=== PATIENT | male | born 1990 | race Caucasian/White ===

== ENCOUNTER → 2018-06-05 20:38 | Outpatient (CLI) | payer OTHER, SELFPAY ==
[2018-06-05 21:02] LABS: Basophils # 0.1 K/mm3 (0-0.2); Basophils % 1.1 % (0.1-2.0); Eosinophils # 0.3 K/mm3 (0.0-0.4); Hematocrit 47.3 % (42.0-52.0); Hemoglobin 15.9 g/dL (14.1-18.0); Lymphocytes # 1.6 K/mm3 (0.7-4.5); Lymphocytes % 24.1 % (10-50); Mean Corpuscular HGB Conc 33.5 g/dL (31.8-35.4); Mean Corpuscular Hemoglobin 29.4 pg (27.0-31.2); Mean Corpuscular Volume 87.8 fl (80-94); Mean Platelet Volume 7.4 fl (7.4-10.4); Monocytes # 0.5 K/mm3 (0.1-1.0); Neutrophils # 4.3 K/mm3 (1.8-7.8); Neutrophils % 63.8 % (37.0-80.0); Platelet Count 261 K/mm3 (142-424); Red Blood Count 5.39 M/mm3 (4.60-6.20); Red Cell Distribution Width 13.1 % (11.5-17.5); White Blood Count 6.7 K/mm3 (4.8-10.8)
[2018-06-05 21:26] LABS: Alanine Aminotransferase 58 U/L (12-78); Albumin Level 3.7 gm/dL (3.4-5.0); Alkaline Phosphatase 78 U/L (46-116); Aspartate Amino Transferase 23 U/L (15-37); Bilirubin,Total 0.3 mg/dL (0.2-1.0); Blood Urea Nitrogen 17 mg/dL (7-18); C-Reactive Protein 0.6 mg/L (0.0-0.9); Calcium 8.9 mg/dL (8.5-10.1); Carbon Dioxide 29 mmol/L (21.0-32.0); Chloride 103 mmol/L (98-107); Chol/HDL Ratio 4.1 (1-3.5); Cholesterol 203 mg/dL (140-200); Estimated Glomerular Filt Rate 72 ml/min (>60); GFR (African American) 87 ML/MIN (>60); Globulin 3.7 gm/dl (1.3-3.2); Glucose 90 mg/dL (74-106); HDL Cholesterol 49 mg/dL (27-67); LDL Cholesterol 131 mg/dL (0-130); Sodium 140 mmol/L (136-145); T4 (Thyroxine) 5.7 ug/dl (4.7-13.3); Thyroid Stimulating Hormone 2.94 uIU/ml (0.358-3.740); Total Protein,Serum 7.4 gm/dL (6.4-8.2); Triglycerides 116 mg/dL (30-200); VLDL Cholesterol 23 mg/dL (0-40)
[2018-06-05 21:43] LABS: Erythrocyte Sedimentation Rate 0 mm/hr (0-15)
== END ==
PROVIDERS: PCP Emergency Medicine; Visit Provider Emergency Medicine
DX: R21 Rash and other nonspecific skin eruption (principal)
CPT/HCPCS: 80053; 80061; 84436; 84443; 85025; 85651; 86140

== ENCOUNTER 2020-10-23 23:30 | Emergency (ER) | payer OTHER, SELFPAY ==
[2020-10-23 23:42] VITALS: BP 159/92; PULSE 96; RESP 22; TEMP 36.9; O2SAT 99; BMI 35.9
--- NOTE | 2020-10-23 23:54 | ECG_ITS ---
APPROVED REPORT Exam: Resting ECG HR:94 bpm ECG Measurements Heart Rate 94 AXES QRSd 98 QRS 5 QT 348 T 20 QTc 435 Conclusion Atrial fibrillation Abnormal ECG Electronically signed by : Flako Vallejo, 10/24/2020 19:01:35
[2020-10-24 00:02] LABS: Basophils % 0.8 % (0.1-2.0); Eosinophils # 0.2 K/mm3 (0.0-0.4); Eosinophils % 3.1 % (0.1-12.0); Hematocrit 45.6 % (42.0-52.0); Hemoglobin 15.4 g/dL (14.1-18.0); Lymphocytes # 1.6 K/mm3 (0.7-4.5); Lymphocytes % 26.8 % (10-50); Mean Corpuscular HGB Conc 33.8 g/dL (31.8-35.4); Mean Corpuscular Hemoglobin 28.8 pg (27.0-31.2); Mean Corpuscular Volume 85.2 fl (80-94); Monocytes # 0.6 K/mm3 (0.1-1.0); Neutrophils # 3.5 K/mm3 (1.8-7.8); Neutrophils % 59.4 % (37.0-80.0); Platelet Count 290 K/mm3 (142-424); Red Blood Count 5.36 M/mm3 (4.60-6.20); Red Cell Distribution Width 13.3 % (11.5-17.5); White Blood Count 5.9 K/mm3 (4.8-10.8)
[2020-10-24 00:07] LABS: Alanine Aminotransferase 52 U/L (12-78); Albumin Level 4.5 g/dl (3.5-5.0); Alkaline Phosphatase 83 U/L (38-126); Anion Gap 9.8 mEq/L (5-15); Aspartate Amino Transferase 53 U/L (17-59); Bilirubin,Indirect 0.4 mg/dL (0.0-0.9); Bilirubin,Total 0.4 mg/dl (0.2-1.3); Bilirubin,Unconjugated 0.3 mg/dL (0.0-1.1); Blood Urea Nitrogen 18 mg/dl (9-20); Calcium 9.1 mg/dl (8.4-10.2); Carbon Dioxide 27 mmol/L (22.0-30.0); Chloride 104 mmol/L (98-107); Creatinine Clearance Estimated 155 mL/min (50-200); Estimated Glomerular Filt Rate 78 ml/min (>60); GFR (African American) 94 ML/MIN (>60); Glucose 104 mg/dl (74-100); Potassium 3.8 mmoL/L (3.5-5.1); Sodium 137 mmol/L (136-145); Total Protein,Serum 7.4 g/dl (6.3-8.2)
[2020-10-24 00:12] LABS: C-Reactive Protein 15.4 mg/L (0-4)
[2020-10-24 00:23] LABS: Troponin I < 0.01 ng/ml (0.00-0.034)
[2020-10-24 00:26] LABS: Procalcitonin 0.064 ng/mL (0.0-2.0)
[2020-10-24 00:28] LABS: Erythrocyte Sedimentation Rate 10 mm/hr (0-15)
[2020-10-24 01:31] VITALS: BP 136/87; PULSE 86; O2SAT 95
--- NOTE | 2020-10-24 01:36 | HMH.EDARPALP ---
ED Disposition Clinical Impression: Palpitations Disposition: Home, Self-Care Condition on Discharge: Good Instructions: DI for Palpitations Additional Instructions: see pcp for follow up Referrals: Dharmesh Vergara MD [Primary Care Provider] - - Critical Care Critical Care Time: No Attestation: On 10/23/20, the high probability of a clinically significant, sudden or life threatening deterioration of the following system(s) required my full and direct attention, intervention and personal management. The time I documented below is in addition to time spent performing reported procedures but includes the following listed in this critical care notation. Medical Decision Making - Medical Records Medical records reviewed: Yes: I reviewed the patient's medical records. - Pawel Inquiry Pt receiving controlled substance: No Vital Signs: 10/23/20 23:42 10/24/20 01:31 Temperature 98.4 F Temperature Source Oral Pulse Rate 86 Pulse Rate [Right] 96 H Respiratory Rate 22 Blood Pressure 136/87 Blood Pressure [Right Arm] 159/92 H Blood Pressure Mean 104 Blood Pressure Mean [Right Arm] 114 Blood Pressure Source [Right Arm] Automatic Cuff Blood Pressure Position [Right Arm] Supine 02 Sat by Pulse Oximetry 99 95 Oxygen Delivery Method Room Air - Lab Data Lab results reviewed: Yes: I reviewed the patient's lab results. Lab Results 10/23/20 23:45: WBC 5.9, RBC 5.36, Hgb 15.4, Hct 45.6, MCV 85.2, MCH 28.8, MCHC 33.8, RDW 13.3, Plt Count 290, MPV 8.0, Neut % (Auto) 59.4, Lymph % (Auto) 26.8, Robeson % (Auto) 10.0 H, Eos % (Auto) 3.1, Baso % (Auto) 0.8, Neut # (Auto) 3.5, Lymph # (Auto) 1.6, Robeson # (Auto) 0.6, Eos # (Auto) 0.2, Baso # (Auto) 0.0, ESR 10 10/23/20 23:45: Sodium 137, Potassium 3.8, Chloride 104, Carbon Dioxide 27, Anion Gap 9.8, BUN 18, Creatinine 1.10, Estimated Creat Clear 155, Estimated GFR 78, Est GFR ( Amer) 94, Glucose 104 H, Calcium 9.1, Total Bilirubin 0.4, Direct Bilirubin 0.0, Conjugated Bilirubin 0.0, Indirect Bilirubin 0.4, Unconjugated Bilirubin 0.3, AST 53, ALT 52, Alkaline Phosphatase 83, Troponin I < 0.01, C-Reactive Protein 15.4 H, Total Protein 7.4, Albumin 4.5, Procalcitonin 0.064 10/24/20 00:00: Thyroxine (T4) 6.6 10/24/20 00:00: Hemoglobin A1c 5.5 Result diagrams: 10/23/20 23:45 10/23/20 23:45 Orders (Tests/Meds): ED MEDICATIONS Generic Name Dose Route Start Last Admin Trade Name Freq PRN Reason Stop Dose Admin Sodium Chloride 1,000 mls @ 999 mls/hr 10/23/20 23:45 10/24/20 00:44 Sod Chlor 0.9% 1000ml Bag IV 10/24/20 00:45 999 mls/hr .Q1H1M RUBEN Administration ORDERS Category Date Time Status XR chest 2V Stat Exams 10/24/20 23:54 Taken T4 (Thyroxine) Stat Lab 10/24/20 00:00 Results TSH [Thyroid Stimulating Hormone] Stat Lab 10/24/20 00:00 Results Troponin I Q3H Lab 10/24/20 00:00 Results Troponin I Q3H Lab 10/24/20 06:00 Ordered - Radiology Data #1 Image(s): Chest Image Reviewed: Yes I reviewed the patient's radiology image Preliminary Findings: Normal/NAD - ECG Data Tracing #1 Normal Sinus Rhythm: Yes Ischemic changes: non-specific ST-T wave changes - NELLY Score for Non-Stemi Age of Patient: 30-39 years old Heart Rate: 90-109 bpm Systolic Blood Pressure: 140-159 mmHg Serum Creatinine: 0.80-1.19 mg/dl CHF Killip Class: I-No CHF Other Risk Factors: None Non-Stemi Risk Score: 54 Medical Decision Narrative: will need diet and echo as follow up - no elevated card enz Arrhythmia/Palpitations HPI - General Chief Complaint: Arrhythmia/Palpitations Stated Complaint: clammy hands,heart racing Time Seen by Provider: 10/24/20 00:00 Mode of Arrival: Ambulatory Source of Information: Patient, Spouse, Medical Record Limitations: No Limitations - History of Present Illness HPI narrative: acute onset of fast hr with no chest pain but felt funny but no loc MD complaint: heart racing Onset (ago): hour(s)
[2020-10-24 02:02] LABS: Hemoglobin A1C 5.5 % (4.0-6.0)
[2020-10-24 02:13] LABS: T4 (Thyroxine) 6.6 ug/dl (5.53-11.0)
[2020-10-24 02:30] LABS: Thyroid Stimulating Hormone 2.16 uIU/mL (0.465-4.68)
[2020-10-24 02:50] VITALS: BP 128/61; PULSE 84; RESP 16; TEMP 36.9; O2SAT 99
[2020-10-24 02:58] LABS: Troponin I < 0.01 ng/ml (0.00-0.034)
--- NOTE | 2020-10-24 23:54 | XR_ITS ---
PROCEDURE: XR CHEST 2V CLINICAL HISTORY: palpatations COMPARISON: No exams were available for comparison FINDINGS: The cardiomediastinal silhouette and pulmonary vascularity are within normal limits. The lungs are clear without infiltrates, suspicious nodules, or pleural effusions. No acute bony abnormalities. IMPRESSION: No acute findings. Dictated by: Lennox Hilton MD 10/24/2020 05:32 Lennox Hilton MD in [place] 10/24/2020 05:32
== END 2020-10-24 03:00 | disposition home or self-care (01) ==
PROVIDERS: Emergency Provider Emergency Medicine; PCP Emergency Medicine
DX: R00.2 Palpitations (principal); R42 Dizziness and giddiness; Z88.0 Allergy status to penicillin
CPT/HCPCS: 71046; 80048; 80076; 83036; 84145; 84436; 84443; 84484; 85025; 85651; 86140; 93005; 96365; 99282

== ENCOUNTER → 2020-11-23 07:47 | Outpatient (CLI) | payer OTHER, SELFPAY ==
--- NOTE | 2020-11-23 07:48 | CA_ITS ---
APPROVED REPORT EXAM: Comprehensive 2D, Doppler, and color-flow Echocardiogram [employer] C[employer] Developer: Samira Davenport CRT Ht: 5 ft 11 in Wt: 225lbs BSA: 2.22 BP: 136/87 mmHg Indications: Palpitations 2D Dimensions LVOT 2.06 cm (M/F) 1.5-2.5 LA Volume 60.70 mL LA Volume Index 27.30 mL/m2 (M/F) 16-34 M-Mode Dimensions RVDd 2.55 cm (0.9-2.6) LA Diam 3.51 cm (1.9-4.0) LVDd 5.43 cm (3.5-5.7) Ao Diam 3.58 cm (2.0-3.7) LVDs 3.01 cm (3.5-5.7) IVSd 1.17 cm (0.6-1.1) PWd 0.94 cm (0.6-1.1) EF (Teich) 75.30% FS 44.60% EDV (Teich) 143.10 mL ESV (Teich) 35.30 mL LV Diastology E Decel Time 150.00 (160-240 msec) E/A Ratio 1.77 LAT E' 17.10 (<10 cm/sec) LAT A' 11.50 cm/s E/LAT E' Ratio 5.68 (>14) Aortic Valve AO Peak GR. 6.80 mmHg Mitral Valve MV E Max Jamari. 97.00 (40-130 cm/s) MV A Velocity 55.00 (40-130 cm/s) E/A Ratio 1.77 MV Decel. Time 150.00 (160-240 ms) MV PHT 44.00 ms Pulmonary Valve PV Peak Velocity 80.00 (50-150 cm/s) Tricuspid Valve TR P. Velocity 236.00 cm/s RAP Estimate 10.00 mmHg RVSP 32.20 mmHg Left Ventricle Left atrium is normal size, left ventricle is normal size, there is no concentric left ventricular hypertrophy, visually estimated ejection fraction 55% with no regional wall motion abnormality, diastolic parameters are within normal range. Right Ventricle Right atrium and right ventricular normal size and contractility. Aortic Valve Aortic valve is minimally thickened aortic valve is grossly normal, there is no aortic stenosis or aortic insufficiency. Mitral Valve Mitral valve grossly normal, there is trace mitral regurgitation. Tricuspid Valve Tricuspid valve is grossly normal, there is trace tricuspid regurgitation. Tricuspid regurgitation jet versus inadequate for calculation of the right ventricular systolic pressure. Pulmonic Valve Pulmonic valve is poorly visualized. Great Vessels Aortic root is normal size. Pericardium No significant pericardial effusion noted. Conclusion 1. Normal left ventricular size, preserved left ventricular systolic function, visually estimated ejection fraction 45% with no regional wall motion abnormality, diastolic parameters are within normal range. 2. Trace mitral and tricuspid regurgitation. 3. No significant pericardial effusion noted. Electronically signed by : Jaycob Rivera, 11/24/2020 11:18:32
== END ==
PROVIDERS: PCP Emergency Medicine; Visit Provider Emergency Medicine
DX: R00.2 Palpitations (principal); R94.31 Abnormal electrocardiogram [ECG] [EKG]
CPT/HCPCS: 93306

== ENCOUNTER → 2021-12-21 08:56 | Outpatient (CLI) | payer OTHER, SELFPAY ==
--- NOTE | 2021-12-21 | CT_ITS ---
FINAL REPORT CLINICAL HISTORY: CHEST PAIN, FAMILY HX HEART DISEASE FINDINGS: CT CORONARY CALCIUM SCORE W/O TECHNIQUE: Thin-section axial images were obtained through the heart and coronary arteries per CT coronary calcium score protocol. This study was performed with techniques to keep radiation doses as low as reasonably achievable (ALARA). Individualized dose reduction techniques using automated exposure control or adjustment of mA and/or kV according to the patient's size were employed. FINDINGS: On the axial images, there is no calcification identified. This gives a coronary artery calcium score of 0 based on the Agatston scale. This coronary artery calcium score places the patient within the 0 percentile based on age and gender. The heart size is normal. There is no pleural or pericardial effusion. Limited evaluation of the lungs reveal no suspicious nodule. IMPRESSION: Coronary artery calcium score of 0 based on the Agatston scale . Reviewed, Interpreted and Dictated by Dat Chin III, MD Transcribed by Kandy Collier Authenticated and [facility]
== END ==
PROVIDERS: PCP Emergency Medicine; Visit Provider Internal Medicine Cardiovascular Disease
DX: Z82.49 Family history of ischemic heart disease and other diseases of the circulatory system (principal)
CPT/HCPCS: 75571

== ENCOUNTER 2022-04-04 22:47 | Emergency (ER) | payer OTHER, SELFPAY ==
[2022-04-04 22:48] VITALS: BP 139/78; PULSE 66; RESP 18; TEMP 36.8; O2SAT 98; BMI 32.3
--- NOTE | 2022-04-04 23:51 | HMH.EDBACK ---
Discharge Plan Disposition Patient Disposition: Home, Self-Care Chief Complaint: Back Pain/Injury Prescriptions Prescriptions: No Action azithromycin [Zithromax Z-Humza] 250 mg tablet See Rx Instructions PO .COMPLEX Qty: 6 0RF Rx Instructions: For 250 mg dose pack: take 500 mg today (day 1), then 250 mg for 4 days (days 2-5) PO clonazepam [Klonopin] 0.5 mg tablet 0.5 mg PO BID Qty: 60 0RF cefdinir 300 mg capsule 300 mg PO BID Qty: 14 0RF sertraline [Zoloft] 25 mg tablet 25 mg PO DAILY Qty: 90 3RF Referrals Follow up/Referrals: Dharmesh Vergara MD [Primary Care Provider] - See instructions Clinical Impressions Clinical Impression: Acute left flank pain, Hematuria Instructions Patient Instructions: DI for Hematuria Discharge ED Provider: Dharmesh Vergara Back Pain HPI General Chief Complaint: Back Pain/Injury Stated Complaint: urinating blood and back pain Time Seen by Provider: 04/04/22 23:51 Mode of Arrival: Ambulatory Source of Information: Patient and Medical Record Limitations: No Limitations Description of Symptoms (Recalled from ER Triage Doc. by RN): pt states that he had a sharp pain in the left flank and started urinating blood in his urine. pt states now the pain is 2/10. pt reports no hx of stones or kidney problems. pt also denies nausea History of Present Illness HPI Narrative: acute onset of lt flank pain Complaint: back pain Onset (ago): hour(s) Duration: intermittent Similar Symptoms Previously: No Location: left flank Severity: moderate Associated symptoms: denies other symptoms Related Data Previous Rx's Medication Instructions Recorded azithromycin 250 mg tablet See Rx Instructions PO .COMPLEX #6 07/31/21 (Zithromax Z-Humza) tabs clonazepam 0.5 mg tablet (Klonopin) 0.5 mg PO BID #60 tabs 01/23/22 cefdinir 300 mg capsule 300 mg PO BID #14 caps 03/13/22 sertraline 25 mg tablet (Zoloft) 25 mg PO DAILY #90 tabs 03/23/22 Allergies Allergy/AdvReac Type Severity Reaction Status Date / Time Penicillins [PENICILLINS] Allergy Unknown Verified 11/14/20 11:14 PFSH PFSH Social History Smoking Status: Never smoker alcohol intake: current substance use type: denies use current occupational status: employed Travel in the last 8 weeks: None household members: family housing: house ROS Obtained: Yes All systems reviewed & no additional complaints except as documented Physical Exam General General appearance: alert Head Head exam: normocephalic Eye Eye exam: Present PERRL and EOMI ENT ENT exam: Present mucous membranes moist Neck Neck exam: Present trachea midline Respiratory Respiratory exam: Present normal lung sounds bilaterally; Absent respiratory distress Cardiovascular Cardiovascular exam: Present regular rate Abdominal Exam Abdominal exam: Present soft Extremities Exam Extremities exam: Present full ROM Neurological Exam Neurological exam: Present alert and CN II-XII intact Psychiatric Psychiatric exam: Present normal affect Skin Skin exam: Absent rash Medical Decision Making Medical Records Medical records reviewed: Yes I reviewed the patient's medical records. Pawel Inquiry Pt receiving controlled substance: No Vital Signs: 04/04/22 22:48 Temperature 98.2 F Temperature Source Oral Pulse Rate [Left] 66 Respiratory Rate 18 Blood Pressure [Right Arm] 139/78 Blood Pressure Mean [Right Arm] 98 02 Sat by Pulse Oximetry 98 Oxygen Delivery Method Room Air Lab Data Lab results reviewed: Yes I reviewed the patient's lab results. Lab Results 04/04/22 23:50: Urine Color Dark yellow, Urine Appearance Clear, Urine pH 5.5, Ur Specific Mcfaddin >= 1.030, Urine Protein 1+, Urine Glucose (UA) Negative, Urine Ketones Negative, Urine Blood 3+, Urine Nitrate Negative, Urine Bilirubin Negative, Urine Urobilinogen 0.2, Ur Leukocyte Esterase Negative, Urine RBC 50-100, Urine WBC Occasional, Ur Squamous Epith Cells 3-5,
[2022-04-04 23:56] LABS: Microscopic, Urine URINE MICROSCOPIC (MICROSCOPIC)
--- NOTE | 2022-04-05 | CT_ITS ---
PROCEDURE INFORMATION: Exam: CT Abdomen And Pelvis Without Contrast Exam date and time: 04/04/2022 11:56 PM Age: 31 years old Clinical indication: Abdominal pain; Flank; Left; Additional info: Flank pain TECHNIQUE: Imaging protocol: Computed tomography of the abdomen and pelvis without contrast. Radiation optimization: All CT scans at this facility use at least one of these dose optimization techniques: automated exposure control; mA and/or kV adjustment per patient size (includes targeted exams where dose is matched to clinical indication); or iterative reconstruction. COMPARISON: [facility] CT THORACIC SPINE W/O CONTRAST 11/22/2016 9:11 PM FINDINGS: Liver: Normal. No mass. Gallbladder and bile ducts: Normal. No calcified stones. No ductal dilation. Pancreas: Normal. No ductal dilation. Spleen: Normal. No splenomegaly. Adrenal glands: Normal. No mass. Kidneys and ureters: Normal. No hydronephrosis. Stomach and bowel: Unremarkable. No obstruction. No mucosal thickening. Appendix: No evidence of appendicitis. Intraperitoneal space: Unremarkable. No free air. No significant fluid collection. Vasculature: Unremarkable. No abdominal aortic aneurysm. Lymph nodes: Unremarkable. No enlarged lymph nodes. Urinary bladder: Unremarkable as visualized. Reproductive: Unremarkable as visualized. Bones/joints: Unremarkable. No acute fracture. Soft tissues: Unremarkable. IMPRESSION: No acute findings.
[2022-04-05 00:08] LABS: Appearance,Urine Clear (Clear); Color,Urine Dark Yellow (Yellow); PH,Urine 5.5 (5.0-8.5); Specific Gravity, Urine >= 1.030 (1.005-1.030)
[2022-04-05 00:09] LABS: Bilirubin,Urine Negative (Negative); Blood, Urine 3+ (Negative); Glucose,Urine (UA) Negative (Negative); Ketones,Urine Negative (Negative); Leukocyte Esterase,Urine Negative (Negative); Nitrate,Urine Negative (Negative); Protein,Urine 1+ (Negative); Urobilinogen,Urine 0.2 EU/dl (0.2)
[2022-04-05 00:21] LABS: RBC,Urine 50-100 #/hpf (0-3); WBC,Urine Occasional #/hpf (0-3)
[2022-04-05 00:22] LABS: Bacteria,Urine Trace /lpf
[2022-04-05 01:07] VITALS: BP 122/72; PULSE 59; RESP 16; TEMP 37.1; O2SAT 98
== END 2022-04-05 01:15 | disposition home or self-care (01) ==
PROVIDERS: Emergency Provider Emergency Medicine; PCP Emergency Medicine
DX: M54.9 Dorsalgia, unspecified (principal); R31.9 Hematuria, unspecified
CPT/HCPCS: 74176; 81001; 99284

== ENCOUNTER → 2022-08-16 13:48 | Outpatient (CLI) | payer OTHER, SELFPAY ==
--- NOTE | 2022-08-16 13:53 | XR_ITS ---
FINAL REPORT CLINICAL HISTORY: plantar foot pain around sesamoid area. FINDINGS: Right foot Four views were obtained. There is no acute fracture or dislocation. The joint spaces appear normal. No soft tissue abnormality is identified. IMPRESSION: No acute process. Reviewed, Interpreted and Dictated by Isidro Gonzalez MD Transcribed by Sarah Banks Authenticated and [facility]
== END ==
PROVIDERS: PCP Emergency Medicine; Visit Provider Orthopaedic Surgery
DX: M79.671 Pain in right foot (principal)
CPT/HCPCS: 73630

== ENCOUNTER → 2023-04-18 10:58 | Outpatient (CLI) | payer OTHER, SELFPAY ==
--- NOTE | 2023-04-18 11:04 | MR_ITS ---
APPROVED REPORT Instructional Technology Director: CLINICAL INDICATION Volunteer, no symptoms TECHNIQUE Image Acquisition: Cardiac magnetic resonance (CMR) was performed on Siemens MRI 1.5T scanner. A set of three-plane, low-resolution, large [id number] localizers were initially acquired. Then axial, coronal, and sagittal TrueFISP, and axial HASTE images were obtained. These were followed by gated TrueFISP breathold cinematic sequences obtained in the short axis with 8 mm slices and 2 mm gaps, 2-chamber (vertical long axis), 3-chamber, 4-chamber (horizontal long axis). A bolus of contrast was injected intravenously with first-pass sequences obtained in the short axis and four-chamber planes. After approximately 10 minutes, a TI software quality test engineer sequence was performed to determine the optimal TI time. Using the optimized TI time, delayed contrast enhancement segmented inversion???recovery TurboFLASH sequences were obtained in the short axis, 2-chamber, 3-chamber, and 4-chamber projections. 2D-velocity phase mapping was performed. Functional parameters were calculated by offline analysis on an independent workstation ([employer], [employer]). Contrast: ProHance??? (Gadoteridol) FINDINGS See below for the full quantitative analysis report. MORPHOLOGY AND FUNCTION Left ventricle: The left ventricle is normal in size. The indexed left ventricular end-diastolic volume (LVEDVi) is 63.6 ml/m2 (reference range 57-105 ml/m2 in males, 56-96 ml/m2 in females). Normal left ventricular systolic function is present. There is normal left ventricular wall thickness. There are no regional wall motion abnormalities noted. LVEF is calculated at 58.2% (reference range 57-77%). Right ventricle: The right ventricle is normal in size. The indexed right ventricular end-diastolic volume (RVEDVi) is 73.0 ml/m2 (reference range 61-121 ml/m2 in males, 48-112 ml/m2 in females). Low-normal right ventricular systolic function is present. RVEF is calculated at 45.7% (reference range 52-72% in males, 51-71% in females). Atria: The left atrium is normal in size. The maximum indexed left atrial volume is 23.3 ml/m2 (reference range 26-52 ml/m2 in males, 27-53 ml/m2 in females). The right atrium is normal in size. The maximum indexed right atrial volume is 19.4 ml/m2 (reference range 18-90 ml/m2). Aorta: The diameter of the aortic annulus is normal, measuring 27.9 mm (coronal view reference range 21-30 mm in males, 19-27 mm in females). The diameter of the aortic sinus is normal, measuring 35.9 mm (coronal view reference range 25-42 mm in males, 24-36 mm in females). The diameter of the sinotubular junction is normal, measuring 28.6 mm (coronal view reference range 18-32 mm in males, 18-28 mm in females). The diameter of the ascending and descending thoracic aorta are normal. Main pulmonary artery: The main pulmonary artery diameter is normal. Pericardium: The pericardial thickness is normal. The pericardial thickness measures 2.4 cm (reference range < 4.0 cm). There is no pericardial effusion. VALVES The valvular morphologies in the visualized sequences appear normal. There is no significant valvular stenosis or regurgitation of the mitral, aortic, tricuspid, or pulmonic valve. Systolic anterior motion of the mitral valve is not visualized. Ratio of pulmonary to systemic flow, Qp:Qs ratio = 1.12 (normal < 1.5), demonstrating no evidence of hemodynamically significant shunt. TISSUE CHARACTERIZATION Resting Perfusion: Normal myocardial blood flow at rest. No evidence of resting hypoperfusion. Myocardial Fibrosis and/or edema: Normal gadolinium kinetics are present. No evidence of late gadolinium enhancement is noted, consistent with absence of myocardial scarring, infarction, or necrosi
== END ==
PROVIDERS: PCP Emergency Medicine
DX: Z02.89 Encounter for other administrative examinations (principal)

== ENCOUNTER 2024-06-11 08:54 | Outpatient (CLI) | payer OTHER, SELFPAY ==
[2024-06-11 09:23] LABS: Basophils # 0.1 K/mm3 (0-0.2); Eosinophils # 0.2 K/mm3 (0.0-0.4); Eosinophils % 2.3 % (0.1-12.0); Hematocrit 49.2 % (42.0-52.0); Hemoglobin 17.3 g/dL (14.1-18.0); Lymphocytes # 1.9 K/mm3 (0.7-4.5); Lymphocytes % 29.5 % (10-50); Mean Corpuscular HGB Conc 35.2 g/dL (31.8-35.4); Mean Corpuscular Hemoglobin 30.1 pg (27.0-31.2); Mean Corpuscular Volume 85.3 fl (80-94); Mean Platelet Volume 7.7 fl (7.4-10.4); Monocytes # 0.5 K/mm3 (0.1-1.0); Monocytes % 8.3 % (1.7-9.3); Neutrophils # 3.9 K/mm3 (1.8-7.8); Platelet Count 290 K/mm3 (142-424); Red Blood Count 5.77 M/mm3 (4.60-6.20); Red Cell Distribution Width 13.7 % (11.5-17.5); White Blood Count 6.6 K/mm3 (4.8-10.8)
[2024-06-11 09:33] LABS: Alanine Aminotransferase 55 U/L (12-78); Albumin Level 4.4 g/dl (3.5-5.0); Albumin/Globulin Ratio 1.6 (1.1-1.8); Alkaline Phosphatase 71 U/L (38-126); Anion Gap 10.9 mEq/L (5-15); Aspartate Amino Transferase 40 U/L (17-59); Bilirubin,Total 0.7 mg/dl (0.2-1.3); Blood Urea Nitrogen 21 mg/dl (9-20); Calcium 9.1 mg/dl (8.4-10.2); Carbon Dioxide 29 mmol/L (22.0-30.0); Chloride 103 mmol/L (98-107); Chol/HDL Ratio 4.6 (1-3.5); Cholesterol 229 mg/dl (140-200); Estimated Glomerular Filt Rate 85 ml/min (>60); GFR (African American) 103 ML/MIN (>60); Globulin 2.8 g/dL (1.3-3.2); Glucose 98 mg/dl (74-100); HDL Cholesterol 50 mg/dl (40-60); Potassium 3.9 mmoL/L (3.5-5.1); Sodium 139 mmol/L (136-145); Total Protein,Serum 7.2 g/dl (6.3-8.2); Triglycerides 101 mg/dl (30-150); VLDL Cholesterol 20 mg/dL (0-40)
[2024-06-11 09:44] LABS: Direct LDL Cholesterol 150.54 mg/dL (100-129)
[2024-06-11 10:01] LABS: Thyroid Stimulating Hormone 2.31 uIU/mL (0.465-4.68)
[2024-06-11 10:12] LABS: 25-OH Vitamin D, Total 36.3 ng/mL (30-100)
[2024-06-11 15:22] LABS: HIV (1&2) Antibody Rapid NONREACTIVE (NONREACTIVE)
[2024-06-12 05:11] LABS: Hepatitis C Antibody Non Reactive (Non Reactive)
== END 2024-06-11 23:59 | disposition home or self-care (01) ==
LOC: LAB 08:55
PROVIDERS: PCP Physician Assistant; Visit Provider Physician Assistant
DX: Z00.00 Encounter for general adult medical examination without abnormal findings (principal)
CPT/HCPCS: 36415; 80050; 80053; 80061; 82306; 84443; 85025; 87380; 87389